=== PATIENT | female | born 1970 | race Caucasian/White ===

== ENCOUNTER 2017-08-30 15:29 | Emergency (ER) | payer OTHER ==
[~2017-08-30] VITALS: Ht 154.9 cm; Wt 63.0 kg
[2017-08-30 15:31] VITALS: BP 166/101; PULSE 112; RESP 17; TEMP 98.5; O2SAT 95
--- NOTE | 2017-08-30 15:43 | PD ---
Physical Exam Time Seen by Provider: 15:40 Narrative 47-year-old female with complaint of vaginal bleeding 3 weeks. Was given Provera and was doing better. Started the minipill on Sunday and has had increasing vaginal bleeding. Reports occasional abdominal pain. Denies vomiting, fever. Denies lightheadedness, dizziness. Reports history of anemia. Patient seen in triage. Vital signs reviewed. Patient awaiting bed placement. Data Data Last Documented VS Vital Signs Date Time Temp Pulse Resp B/P (MAP) Pulse Ox O2 Delivery O2 Flow Rate FiO2 08/30/17 15:31 98.5 112 17 166/101 (122) 95 Room Air MDM Supervised Visit with SALTY: Nazanin Olguin Aug 30, 2017 15:43
[2017-08-30] MEDS ORDERED: LISI2.5T3 PO (16:25)
[2017-08-30] MEDS ORDERED: MAXA5TAB2 PO (16:25)
[2017-08-30] MEDS ORDERED: ALPR.25 PO (16:25)
[2017-08-30] MEDS ORDERED: AMBI5TAB PO (16:25)
[2017-08-30 16:26] VITALS: BP 137/93; PULSE 87; RESP 18; O2SAT 98
--- NOTE | 2017-08-30 17:14 | PD ---
HPI Chief Complaint: Strike Planning Applications Problem/Complaint Time Seen by Provider: 16:41 Travel History International Travel<30 days: No Contact w/Intl Traveler<30days: No Traveled to known affect area: No History of Present Illness HPI 47-year-old female presents to the emergency room for evaluation of heavy vaginal bleeding for the past 2.5 weeks. Patient that she has had extremely heavy periods over the past 3 years. She gets extremely heavy menstrual cycles that are lasting longer and longer each time with more time of non-bleeding in between. Patient states 200 weeks ago she had large, 3 inch clots for which she went to her primary care physician. She was put on Provera then told to start the minipill. Patient started the minipill 4 days ago and states since then her symptoms have been worsening. Today she has been passing 5 inch clots and going through to soup her tampons and a Maxi pad within 1 hour. Patient is frustrated and states this affects her daily living. She has been trying to follow-up with a telescope maintenance but no one will return her call. She has history of anemia and her lowest red blood cell count has been in the 6 range but she has never needed a blood transfusion. He reports lightheadedness swelling in the emergency room but no other episodes. No chest pain, shortness of breath, nausea, or vomiting. PFSH Past Medical History Anemia: Yes Heart Rhythm Problems: Yes (SVT) High Cholesterol: Yes Hypertension: Yes Migraines: Yes Tetanus Vaccination: Unknown Influenza Vaccination: No ?: Not Menopausal: Yes Past Surgical History Abdominal Surgery: Yes (TUMMY TUCK, HERNIA REPAIR) Cardiac Surgery: Yes (ABLATION SVT) Eye Surgery: Yes Social History Alcohol Use: Yes (OCC) Tobacco Use: No Substance Use: Yes (PAST MARIJUANA USE) Allergies-Medications (Allergen,Severity, Reaction): Coded Allergies: erythromycin base (Verified Allergy, Severe, SEVERE ITCHING AND RASH, 11/04) hydroxychloroquine (Verified Allergy, Severe, TINGLING FACE, 08/30/17) vancomycin (Verified Allergy, Severe, FLIPS OUT, 08/30/17) penicillin V (Verified Allergy, Unknown, 08/30/17) Reported Meds & Prescriptions Reported Meds & Active Scripts Active Megestrol (Megestrol Acetate) 40 Mg Tab 40 Mg PO BID 10 Days Reported Maxalt (Rizatriptan Benzoate) 5 Mg Tab 1 Tab PO Xanax (Alprazolam) 0.25 Mg Tab 0.25 Mg PO Q4H PRN Ambien (Zolpidem Tartrate) 5 Mg Tab 5 Mg PO HS PRN Lisinopril 2.5 Mg Tab 2.5 Mg PO DAILY Review of Systems Except as stated in HPI: all other systems reviewed are Neg Physical Exam Narrative GENERAL: Well-nourished, well-developed female in no acute distress. Afebrile. Ambulatory. SKIN: Focused skin assessment warm/dry. HEAD: Normocephalic. EYES: No scleral icterus. No injection or drainage. NECK: Supple, trachea midline. No JVD or lymphadenopathy. CARDIOVASCULAR: Regular rate and rhythm without murmurs, gallops, or rubs. RESPIRATORY: Breath sounds equal bilaterally. No accessory muscle use. GASTROINTESTINAL: Abdomen soft, non-tender, nondistended. Data Data Last Documented VS Vital Signs Date Time Temp Pulse Resp B/P (MAP) Pulse Ox O2 Delivery O2 Flow Rate FiO2 08/30/17 18:58 90 19 139/85 (103) 100 08/30/17 16:26 Room Air 08/30/17 15:31 98.5 Orders Orders Complete Blood Count With Diff (08/30/17 16:52) Basic Metabolic Panel (Bmp) (08/30/17 16:52) Type And Screen (08/30/17 16:52) Iv Access Insert/Monitor (08/30/17 16:52) Ed Urine Pregnancytest Poc (08/30/17 18:14) Ed Discharge Order (08/30/17 18:50) Labs Laboratory Tests Test 08/30/17 17:15 White Blood Count 7.1 TH/MM3 Red Blood Count 4.50 MIL/MM3 Hemoglobin 10.6 GM/DL Hematocrit 34.4 % Mean Corpuscular Volume 76.4 FL Mean Corpuscular Hemoglobin 23.5 PG Mean Corpuscular Hemoglobin Concent 30.8 % Red Cell Distribution Width 24.1 % Platelet Count 331 TH/MM3 Mean Platelet Volume 7.2 FL Neutrophils (%) (Auto) 63.0 % Lymphocytes (%) (Auto) 26.9 % Monocytes (%) (Auto) 7.4 % Eosinophils (%) (Auto) 2.4 % Basophils (%) (Auto) 0.3 % Neutrophils # (Auto) 4.5 TH/MM3 Lymphocytes # (Auto) 1.9 TH/MM3 Monocytes # (Auto) 0.5 TH/MM3 Eosinophils # (Auto) 0.2 TH/MM3 Basophils # (Auto) 0.0 TH/MM3 CBC Comment DIFF FINAL Differential Comment Blood Urea Nitrogen 11 MG/DL Creatinine 0.64 MG/DL Random Glucose 85 MG/DL Calcium Level 8.7 MG/DL Sodium Level 139 MEQ/L Potassium Level 3.6 MEQ/L Chloride Level 107 MEQ/L Carbon Dioxide Level 25.4 MEQ/L Anion Gap 7 MEQ/L Estimat Glomerular Filtration Rate 99 ML/MIN MDM Medical Decision Making Medical Screen Exam Complete: Yes Emergency Medical Condition: Yes Medical Record Reviewed: Yes Differential Diagnosis Anemia, heavy menstrual cycle, endometriosis, ovarian cysts Narrative Course 47-year-old female with a history of anemia on iron pills presents to the emergency room for evaluation of excessive vaginal bleeding for the past 2 weeks especially worse with 2 days ago. Patient went to her primary care physician at onset and was given Provera and told to start minipill. She started minipill 4 days ago and bleeding seemed to worsen. She is now passing 5 inch clots and soaking through 2 tampons and one pad an hour. She denies lightheadedness except for one episode while in the ED. test is negative. CBC is unremarkable with hemoglobin of 10.6. BMP is unremarkable. Patient states this is affecting her daily living. A call was made to the telescope maintenance for outpatient follow-up. I spoke to Dr. Howell, telescope maintenance, who recommends stopping minipill and starting Megace 40 mg twice a day for 30 days with follow-up in his office. Patient discharged with prescription and told to return for worsening symptoms. She understands and agrees to plan. Physician Communication Physician Communication I spoke to Dr. Howell, telescope maintenance, who recommends stopping minipill and starting Negate 40 mg twice a day for 30 days with follow-up in his office. Diagnosis Primary Impression: Episode of heavy vaginal bleeding Referrals: Vidal Howell MD Additional Instructions: Stop minipill. Start Negate. Follow-up with Dr. Howell. Call tomorrow for appointment. Return for worsening symptoms such as lightheadedness, palpitations. Med/Other Pt SpecificInfo: Prescription(s) given Scripts Megestrol (Megestrol) 40 Mg Tab 40 MG PO BID for 10 Days, #20 TAB 0 Refills Prov: Mercy Bucio MD 08/30/17 Disposition: 01 DISCHARGE HOME Condition: Stable Annetta Roberts Aug 30, 2017 17:14
[2017-08-30 17:32] LABS: AUTOMATED NEUTROPHIL # 4.5 TH/MM3 (1.8-7.7); BASOPHIL % 0.3 % (0.0-2.0); EOSINOPHIL # 0.2 TH/MM3 (0-0.4); EOSINOPHIL % 2.4 % (0.0-4.0); HEMATOCRIT 34.4 % (35.0-46.0); HEMO FLAGS DIFF FINAL; LYMPH % 26.9 % (9.0-44.0); LYMPHOCYTE # 1.9 TH/MM3 (1.0-4.8); MEAN CELL VOLUME 76.4 FL (80.0-100.0); MEAN CORPUSCULAR HEMOGLOBIN 23.5 PG (27.0-34.0); MEAN CORPUSCULAR HGB CONC 30.8 % (32.0-36.0); MONO % 7.4 % (0.0-8.0); PLATELET COUNT 331 TH/MM3 (150-450); RED CELL DISTRIBUTION WIDTH 24.1 % (11.6-17.2); WHITE BLOOD COUNT 7.1 TH/MM3 (4.0-11.0)
[2017-08-30 18:00] LABS: BICARBONATE 25.4 MEQ/L (21.0-32.0); POTASSIUM 3.6 MEQ/L (3.5-5.1)
[2017-08-30] MEDS ORDERED: MEGE40TA PO (18:49)
[2017-08-30 18:58] VITALS: BP 139/85
== END 2017-08-30 19:25 | disposition home or self-care (01) ==
LOC: NEPD 15:29
DX: N93.9 Abnormal uterine and vaginal bleeding, unspecified (principal); D64.9 Anemia, unspecified; E78.5 Hyperlipidemia, unspecified; I10 Essential (primary) hypertension; Z79.899 Other long term (current) drug therapy
CPT/HCPCS: 80048; 84703; 85025; 86850; 86900; 86901; 99283